=== PATIENT | female | born 1980 ===

== ENCOUNTER 2018-12-25 02:43 | Inpatient (IN) | payer MEDICAID, OTHER ==
[2018-12-25] MEDS ORDERED: STADOL IV PRN (05:28)
[2018-12-25] MEDS ORDERED: AMPICILLIN/NS 2 GM/100 ML 2 GM/100 ML BAG IV SCH (05:35)
[2018-12-25] MEDS ORDERED: LACTATED RINGERS 1,000 ML ONE (05:36)
[2018-12-25] MEDS ORDERED: AMPICILLIN/NS 2 GM/100 ML 2 GM/100 ML BAG IV ONE (05:36)
[2018-12-25] MEDS ORDERED: PITOCin/NS 20 UNIT/1000ML DRIP 20,000 MILLIUNITS/1,000 ML BAG IV ONE (05:36)
[2018-12-25] MEDS ORDERED: PITOCin/NS 20 UNIT/1000ML DRIP 20 UNITS/1,000 ML BAG IV SCH ×2 (06:00→08:00)
[2018-12-25] MEDS ORDERED: MINERAL OIL ONE (06:34)
[2018-12-25 06:38] LABS: Basophils % (Auto) 0.2 % (0.0-1.8); Eosinophils # (Auto) 0.2 K/mm3 (0.0-0.4); Eosinophils % (Auto) 1.7 % (0.0-4.3); Hematocrit 36.3 % (30.3-42.9); Hemoglobin 11.9 gm/dl (10.1-14.3); Lymphocytes # (Auto) 2.7 K/mm3 (1.2-5.4); Lymphocytes % (Auto) 21.7 % (13.4-35.0); Mean Corpuscular HGB Conc 33 % (30-34); Mean Corpuscular Volume 79 fl (79-97); Monocytes # (Auto) 0.7 K/mm3 (0.0-0.8); Monocytes % (Auto) 5.9 % (0.0-7.3); Platelet Count 205 K/mm3 (140-440); Red Blood Count 4.57 M/mm3 (3.65-5.03); Red Cell Distribution Width 15.8 % (13.2-15.2)
--- NOTE | 2018-12-25 07:14 | History and Physical Report ---
History of Present Illness Date of examination: 12/25/18 Date of admission: 12/25/18 03:19 Chief complaint: Intense Labor Pains History of present illness: care at [facility], 1st trimester complicated by a UTI (GBS) treated with Keflex. course also complicated by excessive maternal weight gain. Past History Past Medical History: no pertinent history Past Surgical History: no surgical history Family/Genetic History: none Social history: no significant social history, - Obstetrical History Expected Date of Delivery: 12/18/18 Actual Gestation: 41 Week(s) 0 Day(s) : 5 Para: 3 Hx # Term Pregnancies: 3 Induced : 1 Number of Living Children: 3 #1 Gender: Female year: 2,[birth year] Birthweight: 2.722 kg Method of Delivery: Vaginal Gestational age at delivery: 40 Complications: none #2 Infant Gender: Male year: 2,[birth year] Birthweight: 3.629 kg Method of Delivery: Vaginal Gestational age at delivery: 40 Complications: none #3 Gender: Male year: 2,011 Birthweight: 3.799 kg Method of Delivery: Vaginal Gestational age at delivery: 42 Complications: none Medications and Allergies Allergies Allergy/AdvReac Type Severity Reaction Status Date / Time No Known Allergies Allergy Verified 12/25/18 05:31 Active Meds: Active Medications Acetaminophen/Hydrocodone Bitart (Spring 5/325) 2 each PO Q6H PRN PRN Reason: Pain, Moderate (4-6) Butorphanol Tartrate (Stadol) 2 mg IV Q2H PRN PRN Reason: Labor Pain Last Admin: 12/25/18 05:43 Dose: 2 mg Documented by: Diphenhydramine HCl (Benadryl) 25 mg PO Q6H PRN PRN Reason: Itching Ephedrine Sulfate (Ephedrine Sulfate) 10 mg IV Q2M PRN PRN Reason: Hypotension Oxytocin/Sodium Chloride (Pitocin/Ns 20 Unit/1000ml Drip) 20 units in 1,000 mls @ 250 mls/hr IV DIRECT CHIKIS Ampicillin Sodium (Ampicillin/Ns 1 Gm/50 Ml) 1 gm in 50 mls @ 100 mls/hr IV Q4HR CHIKIS; Protocol Oxytocin/Sodium Chloride (Pitocin/Ns 20 Unit/1000ml Drip) 20 units in 1,000 mls @ 125 mls/hr IV DIRECT CHIKIS Oxytocin/Sodium Chloride (Pitocin/Ns 30 Unit/500ml) 30 units in 500 mls @ 1 mls/hr IV TITR CHIKIS; Protocol Lactated Ringer's (Lactated Ringers) 1,000 mls @ 125 mls/hr IV DIRECT CHIKIS Ibuprofen (Ibuprofen) 600 mg PO Q6H CHIKIS Magnesium Hydroxide (Milk Of Magnesia) 30 ml PO HS PRN PRN Reason: Constipation Mineral Oil (Mineral Oil) 30 ml PO QHS PRN PRN Reason: Constipation Multivitamins/Iron/Calcium ( Vitamin) 1 each PO QDAY CHIKIS Sodium Chloride (Sodium Chloride Flush Syringe 10 Ml) 10 ml IV PRN NR Witch Grace/Glycerin (Tucks Pad) 1 each TP PRN PRN PRN Reason: Hemorrhoid/cleansing/soothing Review of Systems All systems: negative - Vital Signs Vital signs: Vital Signs Pulse BP 75 106/59 12/25/18 03:10 12/25/18 03:10 Temp Pulse Resp BP Pulse Ox 97.2 F L 80 22 97/56 98 12/25/18 03:11 12/25/18 07:08 12/25/18 05:43 12/25/18 07:08 12/25/18 07:07 - Physical Exam Breasts: Positive: normal Cardiovascular: Regular rate Lungs: Positive: Clear to auscultation, Normal air movement Abdomen: Positive: normal appearance, soft, normal bowel sounds Genitourinary (Female): Positive: normal external genitalia, normal perenium Vagina: Positive: normal moisture Uterus: Positive: enlarged - Obstetrical FHR: category 1 Uterine Contraction Monitor Mode: External Cervical Dilatation: 10 (small amount of clear fluid upon AROM at 0633) Cervical Effacement Percentage: 100 station: 0 Uterine Contraction Pattern: Regular Uterine Tone Measurement Phase: Resting Uterine Contraction Intensity: Strong/Firm Results Result Diagrams: 12/25/18 04:05 Abnormal lab results 12/25/18 Range/Units 04:05 WBC 12.2 H (4.5-11.0) K/mm3 MCH 26 L (28-32) pg RDW 15.8 H (13.2-15.2) % Seg Neutrophils % 70.5 H (40.0-70.0) % Seg Neutrophils # 8.6 H (1.8-7.7) K/mm3 All other labs normal. Assessment and Plan A: IUP @ 41 Weeks Active Labor Category I Tracing GBS Positive AMA P: Admit to L&D per Routine Orders GBS Prophylaxis AROM IV Pain Control Expect
[2018-12-25] MEDS ORDERED: BENADRYL PO PRN (07:30)
[2018-12-25] MEDS ORDERED: TUCKS PAD TP PRN (07:30)
--- NOTE | 2018-12-25 07:32 | Procedure Note ---
OB Delivery Note - Delivery Date of Delivery: 12/25/18 (0636) Surgeon: ALEJANDRA ARROYO Estimated blood loss: 200cc - Vaginal Delivery presentation: vertex Delivery position: OA Delivery induction: none Delivery augmentation: rupture of membranes Delivery monitor: external FHT, external uterine Route of delivery: Delivery placenta: spontaneous Delivery cord: nuchal cord, 3 umbilical vessels Episiotomy: none Delivery laceration: none Anesthesia: none Delivery comments: of a live 6'4 female infant over a intact perineum under IV pain control wi th Apgars of 8 and 9 at 0636 on 12/25/2018. Nuchal cord x 1 easily manually reduced on the perineum prior to delivery of the anterior shoulder. directly to maternal abd/chest, skin to skin contact. Spontaneous delivery of placenta complete and intact with Ngo side presenting at 0642. Fundus is firm and midline located 4 below the U. Lochia is scant. Delayed cord clamping and cutting; Cord cut by the Father of the baby. GBS prophylaxis x 1. Placenta discarded.
[2018-12-25] MEDS ORDERED: MAGNESIUM SULFATE 4GM/100ML 4 GM/100 ML BAG IV ONE (07:49)
[2018-12-25] MEDS ORDERED: SODIUM CHLORIDE FLUSH SYRINGE 10 ML IV PRN (08:00)
[2018-12-25] MEDS ORDERED: MAGNESIUM SULFATE 40GM/1000ML 40 GM/1,000 ML BAG IV SCH (08:00)
[2018-12-25] MEDS ORDERED: PITOCin/NS 30 UNIT/500ML 30 UNITS/500 ML BAG IV SCH (08:00)
[2018-12-25] MEDS ORDERED: LACTATED RINGERS 1,000 ML IV SCH (08:00)
[2018-12-25] MEDS ORDERED: AMPICILLIN/NS 1 GM/50 ML 1 GM/50 ML BAG IV SCH (10:00)
[2018-12-25] MEDS: NORCO 5/325 PO PRN (12:14)
[2018-12-25] MEDS: PRENATAL VITAMIN PO SCH (12:15)
[2018-12-25] MEDS: IBUPROFEN PO SCH ×3 (12:15→23:28)
[2018-12-25 18:24] LABS: Hematocrit 30.8 % (30.3-42.9); Hemoglobin 10.2 gm/dl (10.1-14.3)
[2018-12-25] MEDS ORDERED: MILK OF MAGNESIA PO PRN (22:00)
[2018-12-25] MEDS ORDERED: MINERAL OIL PO PRN (22:00)
[2018-12-26] MEDS: NORCO 5/325 PO PRN ×2 (03:18→14:00)
[2018-12-26] MEDS: IBUPROFEN PO SCH ×3 (05:37→21:25)
--- NOTE | 2018-12-26 12:14 | Progress Note ---
Assessment and Plan A: PPD#1 s/p Stable P: Routine PP orders Discharge home today Subjective - Subjective Date of service: 12/26/18 Principal diagnosis: PPD#1 s/p Interval history: See H&P and delivery note Patient reports: appetite normal, voiding normally, pain well controlled, ambulating normally [place]: doing well Objective - Vital Signs Latest vital signs: Vital Signs Temp Pulse Resp BP BP 12/26/18 07:25 98 F 61 18 100/58 12/26/18 03:18 18 12/26/18 00:00 98.7 F 81 16 101/78 12/25/18 23:28 18 12/25/18 20:19 98.3 F 18 92/52 12/25/18 16:27 98.1 F 75 18 92/56 12/25/18 12:15 18 12/25/18 12:14 18 Intake and Output 12/25/18 12/26/18 12/26/18 23:59 07:59 15:59 Intake Total 480 660 Balance 480 660 Intake: Oral 480 360 Intake, Free Water 300 Other: Total, Intake Amount 480 360 - Exam Breasts: Present: normal Cardiovascular: Present: Regular rate, Normal S1, Normal S2, No murmurs Lungs: Present: Clear to auscultation, Normal air movement Abdomen: Present: normal appearance, soft, normal bowel sounds. Absent: distention Vulva: both: normal Uterus: Present: normal, fundal height above umbilicus (-1) Extremities: Present: normal Deep Tendon Reflex Grade: Normal +2
--- NOTE | 2018-12-26 12:15 | Discharge Summary ---
Providers - Providers Date of Admission: 12/25/18 03:19 Date of discharge: 12/26/18 Attending physician: LINDSEY JACOB MD Primary care physician: LINDSEY JACOB MD Hospitalization Reason for admission: active labor, IUP at term Delivery: Procedure details: See H&P and delivery note Episiotomy: none Laceration: none Other procedures: none complications: none [place] baby: female Condition at discharge: Good Disposition: DC-01 TO HOME OR SELFCARE Plan - Provider Discharge Summary Activity: routine, no sex for 6 weeks, no heavy lifting 4 weeks, no strenuous exercise Diet: routine Instructions: routine Additional instructions: [] Smoking cessation referral if applicable(refer to patient education folder for contact #) [] Refer to [facility] Booklet Call your doctor immediately for: * Fever > 100.5 * Heavy vaginal bleeding ( >1 pad per hour) * Severe persistent headache * Shortness of breath * Reddened, hot, painful area to leg or breast * Drainage or odor from incision. * Keep incision clean and dry at all times and follow doctor's instructions regarding bathing/showering - Follow up plan Follow up: LINDSEY JACOB MD [Primary Care Provider] - 6 Weeks
[2018-12-26] MEDS: PRENATAL VITAMIN PO SCH (14:00)
[2018-12-27] MEDS: IBUPROFEN PO SCH ×2 (03:06→10:40)
[2018-12-27] MEDS: PRENATAL VITAMIN PO SCH (10:41)
[2018-12-27 16:33] VITALS: BP 99/52
== END 2018-12-27 14:09 | disposition home or self-care (01) | DRG 807 ==
LOC: TRG 02:43 → LD 02:56 → TRG 03:18 → LD 03:19 → OB 09:17
PROVIDERS: ADMIT Obstetrics & Gynecology; ATTEND Obstetrics & Gynecology
PROC: 10E0XZZ Delivery of Products of Conception, External Approach (ICD-10-PCS; principal; 2018-12-25)
PROC: 10907ZC Drainage of Amniotic Fluid, Therapeutic from Products of Conception, Via Natural or Artificial Opening (ICD-10-PCS; 2018-12-25)
DX: O99.824 Streptococcus B carrier state complicating childbirth (principal); O69.1XX0 Labor and delivery complicated by cord around neck, with compression, not applicable or unspecified; Z37.0 Single live birth; Z3A.41 41 weeks gestation of pregnancy
CPT/HCPCS: 36415; 85014; 85018; 85025; 86592; 86850; 86900; 86901; 96365; G0378; J0290; J0595; J2590; J7120